=== PATIENT | male | born 1965 | race Caucasian/White ===

== ENCOUNTER 2017-09-08 11:24 | Observation (INO) | payer BC ==
[2017-09-08] MEDS ORDERED: ASPIRIN 81 MG PO STA (12:05)
--- NOTE | 2017-09-08 12:11 | ED ---
General Adult HPI - General Source: patient, RN notes reviewed Mode of arrival: ambulatory Limitations: no limitations <Marty Gupta - Last Filed: 09/08/17 13:54> <Gerson Patterson - Last Filed: 09/08/17 14:19> - General Chief complaint: Anxiety Stated complaint: Chills, Anxiety Time Seen by Provider: 09/08/17 11:54 - History of Present Illness Initial comments: This a 51-year-old male presents emergency Department with complaints of left sided chest pain. Patient states that symptoms started primarily last night in which he states he has some onset of chills, denies tingling and not feeling well. Patient states that today he has developed some pain which is very minimal 08/07. Patient states she's had no prior cardiac history does have regular labwork physical every 3 years no history of hyperlipidemia, diabetes or hypertension. Patient is a nonsmoker. Patient does not have heart disease history. Patient states that he has no shortness of breath he has had several episodes where he gets hot flush, clammy not feeling well but symptoms were last briefly. He states primary's had this since this morning. He does admit that he is generalized. Well but he has left sided upper abdominal pain states some days it hurts and some states it doesn't. States it does increase with certain activities. Patient had no prior abdominal or chest surgeries. Denies any URI symptoms. (Marty Gupta) - Related Data Home Medications Medication Instructions Recorded Confirmed Ascorbic Acid [Vitamin C] 1,000 mg PO DAILY 09/08/17 09/08/17 Aspirin 81 mg PO DAILY 09/08/17 09/08/17 Cholecalciferol [Vitamin D3] 1,000 unit PO DAILY 09/08/17 09/08/17 Echinacea 400 mg PO DAILY 09/08/17 09/08/17 Multivit-Min/FA/Lycopen/Lutein 1 cap PO DAILY 09/08/17 09/08/17 [Centrum Silver Men Tablet] Vitamin B Complex 1 cap PO DAILY 09/08/17 09/08/17 Allergies Allergy/AdvReac Type Severity Reaction Status Date / Time No Known Allergies Allergy Verified 09/08/17 13:45 Review of Systems ROS Other: All systems not noted in ROS Statement are negative. <Marty Gupta - Last Filed: 09/08/17 13:54> ROS Other: All systems not noted in ROS Statement are negative. <Gerson Patterson - Last Filed: 09/08/17 14:19> ROS Statement: Those systems with pertinent positive or pertinent negative responses have been documented in the HPI. Past Medical History Past Medical History: No Reported History History of Any Multi-Drug Resistant Organisms: None Reported Past Surgical History: No Surgical Hx Reported Past Psychological History: Anxiety Smoking Status: Never smoker Past Alcohol Use History: Occasional Past Drug Use History: None Reported <Marty Gupta - Last Filed: 09/08/17 13:54> General Exam Limitations: no limitations General appearance: alert, in no apparent distress Head exam: Present: atraumatic, normocephalic, normal inspection Eye exam: Present: normal appearance, PERRL, EOMI. Absent: scleral icterus, conjunctival injection, periorbital swelling ENT exam: Present: normal exam, normal oropharynx, mucous membranes moist, TM's normal bilaterally, normal external ear exam Neck exam: Present: normal inspection, full ROM. Absent: tenderness, meningismus, lymphadenopathy Respiratory exam: Present: normal lung sounds bilaterally. Absent: respiratory distress, wheezes, rales, rhonchi, stridor Cardiovascular Exam: Present: regular rate, normal rhythm, normal heart sounds. Absent: systolic murmur, diastolic murmur, rubs, gallop, clicks GI/Abdominal exam: Present: soft, normal bowel sounds. Absent: distended, tenderness, guarding, rebound, rigid Neurological exam: Present: alert, oriented X3, CN II-XII intact Skin exam: Present: warm, dry, intact, normal color. Absent: rash <Marty Gupta - Last Filed: 09/08/17 13:54> Course <Marty Gupta - Last Filed: 09/08/17 13:54> <Gerson Patterson - Last Filed: 09/08/17 14:19> Vital Signs 09/08/17 09/08/17 11:30 12:50 Temperature 97.7 F Pulse Rate 80 68 Respiratory 18 16 Rate Blood Pressure 133/65 134/66 O2 Sat by Pulse 99 98 Oximetry - Reevaluation(s) Reevaluation #1: 09/08/17 14:18 Patient was reevaluated by myself, Dr. Patterson. Patient symptom-free at this time. Patient has had episodes of chest discomfort since last night. Patient has had some associated mild nausea and diaphoresis. Patient and family updated on results and plan. Case was discussed in detail with Dr. Maharaj, who will admit for Dr. Bermudez. (Gerson Patterson) EKG Findings - EKG Comments: EKG Findings:: EKG performed at 11:37 normal sinus rhythm with a rate of 78 MS 138 QRS 92 QT/QTC 392/423 <Marty Gupta - Last Filed: 09/08/17 13:54> Medical Decision Making - Lab Data Result diagrams: 09/08/17 12:15 09/08/17 12:15 <Marty Gupta - Last Filed: 09/08/17 13:54> - Lab Data Result diagrams: 09/08/17 12:15 09/08/17 12:15 <Gerson Patterson - Last Filed: 09/08/17 14:19> - Lab Data Lab Results 09/08/17 09/08/17 09/08/17 Range/Units 12:15 12:15 12:15 WBC 8.4 (3.8-10.6) k/uL RBC 5.56 (4.30-5.90) m/uL Hgb 16.2 (13.0-17.5) gm/dL Hct 50.9 (39.0-53.0) % MCV 91.4 (80.0-100.0) fL MCH 29.1 (25.0-35.0) pg MCHC 31.8 (31.0-37.0) g/dL RDW 12.2 (11.5-15.5) % Plt Count 235 (150-450) k/uL Neutrophils % 84 % Lymphocytes % 8 % Monocytes % 7 % Eosinophils % 1 % Basophils % 0 % Neutrophils # 7.0 (1.3-7.7) k/uL Lymphocytes # 0.7 L (1.0-4.8) k/uL Monocytes # 0.6 (0-1.0) k/uL Eosinophils # 0.1 (0-0.7) k/uL Basophils # 0.0 (0-0.2) k/uL PT (9.0-12.0) sec INR (<1.2) APTT (22.0-30.0) sec Sodium 143 (137-145) mmol/L Potassium 4.2 (3.5-5.1) mmol/L Chloride 102 (98-107) mmol/L Carbon Dioxide 30 (22-30) mmol/L Anion Gap 11 mmol/L BUN 14 (9-20) mg/dL Creatinine 0.90 (0.66-1.25) mg/dL Est GFR (MDRD) Af Amer >60 (>60 ml/min/1.73 sqM) Est GFR (MDRD) Non-Af >60 (>60 ml/min/1.73 sqM) Glucose 103 H (74-99) mg/dL Calcium 10.7 H (8.4-10.2) mg/dL Magnesium 2.2 (1.6-2.3) mg/dL Total Bilirubin 0.6 (0.2-1.3) mg/dL AST 22 (17-59) U/L ALT 19 L (21-72) U/L Alkaline Phosphatase 48 (38-126) U/L Total Creatine Kinase 49 L (55-170) U/L CK-MB (CK-2) 0.4 (0.0-2.4) ng/mL CK-MB (CK-2) Rel Index 0.8 Troponin I <0.012 (0.000-0.034) ng/mL Total Protein 7.4 (6.3-8.2) g/dL Albumin 4.5 (3.5-5.0) g/dL Amylase 65 (30-110) U/L Lipase 74 (23-300) U/L 09/08/17 Range/Units 12:15 WBC (3.8-10.6) k/uL RBC (4.30-5.90) m/uL Hgb (13.0-17.5) gm/dL Hct (39.0-53.0) % MCV (80.0-100.0) fL MCH (25.0-35.0) pg MCHC (31.0-37.0) g/dL RDW (11.5-15.5) % Plt Count (150-450) k/uL Neutrophils % % Lymphocytes % % Monocytes % % Eosinophils % % Basophils % % Neutrophils # (1.3-7.7) k/uL Lymphocytes # (1.0-4.8) k/uL Monocytes # (0-1.0) k/uL Eosinophils # (0-0.7) k/uL Basophils # (0-0.2) k/uL PT 10.5 (9.0-12.0) sec INR 1.1 (<1.2) APTT 25.3 (22.0-30.0) sec Sodium (137-145) mmol/L Potassium (3.5-5.1) mmol/L Chloride (98-107) mmol/L Carbon Dioxide (22-30) mmol/L Anion Gap mmol/L BUN (9-20) mg/dL Creatinine (0.66-1.25) mg/dL Est GFR (MDRD) Af Amer (>60 ml/min/1.73 sqM) Est GFR (MDRD) Non-Af (>60 ml/min/1.73 sqM) Glucose (74-99) mg/dL Calcium (8.4-10.2) mg/dL Magnesium (1.6-2.3) mg/dL Total Bilirubin (0.2-1.3) mg/dL AST (17-59) U/L ALT (21-72) U/L Alkaline Phosphatase (38-126) U/L Total Creatine Kinase (55-170) U/L CK-MB (CK-2) (0.0-2.4) ng/mL CK-MB (CK-2) Rel Index Troponin I (0.000-0.034) ng/mL Total Protein (6.3-8.2) g/dL Albumin (3.5-5.0) g/dL Amylase (30-110) U/L Lipase (23-300) U/L Disposition <Marty Gupta - Last Filed: 09/08/17 13:54> <Gerson Patterson - Last Filed: 09/08/17 14:19> Clinical Impression: Chest pain Disposition: ADMITTED IP TO THIS [facility] Condition: Stable Referrals: Mary Ann Bermudez MD [Primary Care Provider] - 1-2 days
[2017-09-08 12:36] LABS: Basophils % (A) 0 %; Eosinophils # (A) 0.1 k/uL (0-0.7); Eosinophils % (A) 1 %; HCT 50.9 % (39.0-53.0); HGB 16.2 gm/dL (13.0-17.5); Lymphocytes # (A) 0.7 k/uL (1.0-4.8); Lymphocytes % (A) 8 %; MCH 29.1 pg (25.0-35.0); MCHC 31.8 g/dL (31.0-37.0); MCV 91.4 fL (80.0-100.0); Mean Platelet Volume 6.6; Monocytes # (A) 0.6 k/uL (0-1.0); Monocytes % (A) 7 %; Neutrophils % (A) 84 %; Platelet Count 235 k/uL (150-450); RBC 5.56 m/uL (4.30-5.90); RDW 12.2 % (11.5-15.5); WBC 8.4 k/uL (3.8-10.6)
[2017-09-08 12:44] LABS: INR 1.1 (<1.2); Partial Thromboplastin Time 25.3 sec (22.0-30.0); Prothrombin Time 10.5 sec (9.0-12.0)
[2017-09-08 12:49] LABS: ALT 19 U/L (21-72); AST 22 U/L (17-59); Albumin 4.5 g/dL (3.5-5.0); Alkaline Phosphatase 48 U/L (38-126); Amylase 65 U/L (30-110); Anion Gap 11 mmol/L; Blood Urea Nitrogen 14 mg/dL (9-20); Calcium 10.7 mg/dL (8.4-10.2); Carbon Dioxide 30 mmol/L (22-30); Chloride 102 mmol/L (98-107); Glucose 103 mg/dL (74-99); Lipase 74 U/L (23-300); Magnesium 2.2 mg/dL (1.6-2.3); Potassium 4.2 mmol/L (3.5-5.1); Sodium 143 mmol/L (137-145); Total Bilirubin 0.6 mg/dL (0.2-1.3); Total Protein 7.4 g/dL (6.3-8.2)
[2017-09-08 12:58] LABS: Creatine Kinase 49 U/L (55-170)
[2017-09-08 13:10] LABS: Creatine Kinase MB 0.4 ng/mL (0.0-2.4); Troponin I <0.012 ng/mL (0.000-0.034)
--- NOTE | 2017-09-08 13:18 | XR ---
EXAMINATION TYPE: XR chest 2V DATE OF EXAM: 09/08/2017 HISTORY: Chest Pain. REFERENCE: NONE. FINDINGS: The lungs are overinflated but clear. Pleural spaces are clear. The heart is not enlarged. IMPRESSION: COPD.
[2017-09-08] MEDS ORDERED: HEPARIN SODIUM,PORCINE 5,000 UNIT/ML 1 ML VIAL IV ONE (13:55)
[2017-09-08] MEDS ORDERED: NITROGLYCERIN SL TABS 0.4 MG TAB SUBLINGUAL PRN (13:55)
[2017-09-08] MEDS ORDERED: HEPARIN SOD,PORK IN 0.45% NACL 25,000 UNIT in 0.45% NACL 1 500ML.BAG IV SCH (14:00)
[2017-09-08 14:54] VITALS: BMI 19.1
[2017-09-08 19:56] LABS: Creatine Kinase 43 U/L (55-170)
[2017-09-08 20:09] LABS: Creatine Kinase MB 0.2 ng/mL (0.0-2.4); Troponin I <0.012 ng/mL (0.000-0.034)
[2017-09-08 20:33] VITALS: RESP 16
[2017-09-09 01:42] LABS: Creatine Kinase 39 U/L (55-170)
[2017-09-09 01:55] LABS: Creatine Kinase MB <0.2 ng/mL (0.0-2.4); Troponin I <0.012 ng/mL (0.000-0.034)
[2017-09-09 03:51] LABS: Cholesterol 181 mg/dL (<200); HDL Cholesterol 59 mg/dL (40-60); LDL Cholesterol,Calculated 108 mg/dL (0-99); Triglycerides 68 mg/dL (<150)
[2017-09-09] MEDS ORDERED: ASPIRIN 325 MG TAB PO SCH ×2 (09:00)
--- NOTE | 2017-09-09 10:17 | ECHOF ---
Referral Reason:chest pain MEASUREMENTS -------- HEIGHT: 185.4 cm WEIGHT: 65.3 kg BP: 112/65 RVIDd: 2.7 cm (< 3.3) IVSd: 1.1 cm (0.6 - 1.1) LVIDd: 4.4 cm (3.9 - 5.3) LVPWd: 1.0 cm (0.6 - 1.1) IVSs: 1.4 cm LVIDs: 3.0 cm LVPWs: 1.5 cm LA Diam: 3.1 cm (2.7 - 3.8) Ao Diam: 3.6 cm (2.0 - 3.7) AV Cusp: 2.3 cm (1.5 - 2.6) MV EXCURSION: 26.226 mm (> 18.000) MV EF SLOPE: 224 mm/s (70 - 150) EPSS: 0.1 cm MV E Juan M: 0.76 m/s MV DecT: 165 ms MV A Juan M: 0.40 m/s MV E/A Ratio: 1.90 RAP: 5.00 mmHg RVSP: 21.00 mmHg FINDINGS -------- Sinus rhythm. This was a technically good study. The left ventricular size is normal. There is borderline concentric left ventricular hypertrophy. Overall left ventricular systolic function is normal with, an EF between 55 - 60 %. The right ventricle is normal in size. The left atrial size is normal. The right atrium is normal in size. The aortic valve is trileaflet, and appears structurally normal. No aortic stenosis or regurgitation. The mitral valve is normal. Mild mitral regurgitation is present. Mild tricuspid regurgitation present. Right ventricular systolic pressure is normal at < 35 mmHg. There is no pulmonic regurgitation present. The aortic root size is normal. Normal inferior vena cava with normal inspiratory collapse consistent with estimated right atrial pre ssure of 5 mmHg. There is no pericardial effusion. CONCLUSIONS -------- 1. Sinus rhythm. 2. This was a technically good study. 3. The left ventricular size is normal. 4. There is borderline concentric left ventricular hypertrophy. 5. Overall left ventricular systolic function is normal with, an EF between 55 - 60 %. 6. The left atrial size is normal. 7. The aortic valve is trileaflet, and appears structurally normal. No aortic stenosis or regurgitati on. 8. The mitral valve is normal. 9. Mild mitral regurgitation is present. 10. Mild tricuspid regurgitation present. 11. Right ventricular systolic pressure is normal at < 35 mmHg. 12. There is no pulmonic regurgitation present. 13. The aortic root size is normal. 14. Normal inferior vena cava with normal inspiratory collapse consistent with estimated right atrial pressure of 5 mmHg. 15. There is no pericardial effusion. WATER CARTER: Madison Morrison RDCS
--- NOTE | 2017-09-09 11:18 | P.CRDCN ---
History of Present Illness Consult date: 09/09/17 Consult reason: chest pain History of present illness: Mr. Cline is a pleasant 51-year-old male with no significant past medical history. He does admit to mild anxiety and smokes cigars intermittently. He denies history of coronary artery disease in himself or any members of his immediate family. He does recall having had a stress test a few years ago in [facility] for a similar episode. We have been asked to see him in consultation for complaints of chest pain. Yesterday he had an acute onset of mid-sternal chest tightening while sitting in bed watching TV. He denies radiation of the pain to the arms, back, neck or jaw. He did have mild shortness of breath, clammy hands and nausea during this episode. This persisted for approximately 2-3 hours with no specific aggravating or alleviating factors. He has had no further episodes since admission and telemetry tracings have been unremarkable. EKG reveals sinus mechanism with no acute ST or T-wave abnormalities. Chest xray shows hyperinflation consistent with COPD. Laboratory data reviewed, hgb 16.2, plt 235, d-dimer negative, potasium 4.2, magnesium 2.2, creatinine 0.9, cardiac enzymes negative x3, LDL 108, HDL 59. Currently he takes aspirin 81 mg daily. Stress test from [place] was obtained and reviewed, he underwent a cardiolyte that was negative for stress induced reversible ischemia with EF 66%. Review of Systems At the time of my exam: CONSTITUTIONAL: Denies fever. Denies chills. EYES: Denies blurred vision. Denies vision changes. Denies eye pain. EARS, NOSE, MOUTH & THROAT: Denies headache. Denies sore throat. Denies ear pain. CARDIOVASCULAR: Denies chest pain. Denies shortness of breath. Denies orthopnea. Denies PND. Denies palpitations. RESPIRATORY: Denies cough. GASTROINTESTINAL: Denies abdominal pain. Denies diarrhea. Denies constipation. Denies nausea. Denies vomiting. MUSCULOSKELETAL: Denies myalgias. INTEGUMENTARY: Denies pruitis. Denies rash. NEUROLOGIC: Denies numbness. Denies tingling. Denies weakness. PSYCHIATRIC: Denies anxiety. Denies depression. ENDOCRINE: Denies fatigue. Denies weight change. Denies polydipsia. Denies polyurina. GENITOURINARY: Denies burning, hematuria or urgency with micturation. HEMATOLOGIC: Denies history of anemia. Denies bleeding. Past Medical History Past Medical History: No Reported History History of Any Multi-Drug Resistant Organisms: None Reported Past Surgical History: No Surgical Hx Reported Smoking Status: Never smoker Medications and Allergies Home Medications Medication Instructions Recorded Confirmed Type Ascorbic Acid [Vitamin C] 1,000 mg PO DAILY 09/08/17 09/08/17 History Aspirin 81 mg PO DAILY 09/08/17 09/08/17 History Cholecalciferol [Vitamin D3] 1,000 unit PO DAILY 09/08/17 09/08/17 History Echinacea 400 mg PO DAILY 09/08/17 09/08/17 History Multivit-Min/FA/Lycopen/Lutein 1 cap PO DAILY 09/08/17 09/08/17 History [Centrum Silver Men Tablet] Vitamin B Complex 1 cap PO DAILY 09/08/17 09/08/17 History Allergies Allergy/AdvReac Type Severity Reaction Status Date / Time No Known Allergies Allergy Verified 09/08/17 13:45 Physical Exam Vitals: Vital Signs Temp Pulse Pulse Resp BP BP Pulse Ox 09/09/17 07:17 98.5 F 65 16 112/65 96 09/09/17 04:00 98.4 F 64 16 121/68 97 09/09/17 00:00 98.9 F 69 16 115/65 96 09/08/17 20:00 98.4 F 57 L 16 111/68 96 09/08/17 19:57 56 L 18 09/08/17 15:32 97 09/08/17 14:45 98.5 F 59 L 18 120/77 93 L 09/08/17 14:40 60 16 110/63 94 L 09/08/17 12:50 68 16 134/66 98 09/08/17 11:30 97.7 F 80 18 133/65 99 Intake and Output 09/08/17 09/09/17 09/09/17 22:59 06:59 14:59 Intake Total 92.05 116.947 Balance 92.05 116.947 Intake: Intake, IV Titration 92.05 116.947 Amount Heparin Sod,Pork in 0.45% 92.05 116.947 NaCl 25,000 unit In 0.45 % NaCl 1 500ml.bag @ 12 UNITS/KG/HR 15.78 mls/hr IV .Q24H [facility] Rx#: [id number] Other: Voiding Method Toilet Toilet # Voids 2 3 Weight 65.77 kg Blood pressure 112/65 heart rate 65 afebrile GENERAL: This is a 51-year-old male in no apparent distress at the time of my examination. HEENT: Head is atraumatic, normocephalic. Pupils are equal, round. Sclerae anicteric. Conjunctivae are clear. Mucous membranes of the mouth are moist. Neck is supple. There is no jugular venous distention. No carotid bruit is heard. LUNGS: Clear to auscultation no wheezes, rales or rhonchi. No chest wall tenderness is noted on palpation or with deep breathing. HEART: Regular rate and rhythm without murmurs, rubs or gallops. S1 and S2 heard. ABDOMEN: Soft, nontender. Bowel sounds are heard. No organomegaly noted. EXTREMITIES: No evidence of peripheral edema and no calf tenderness noted. VASCULAR: Radial and dorsalis pedis pulses palpated, no evidence of clubbing. NEUROLOGIC: Patient is awake, alert and oriented x3. Results 09/08/17 12:15 09/08/17 12:15 Cardiac Enzymes 09/08/17 09/08/17 09/08/17 Range/Units 12:15 12:15 19:17 AST 22 (17-59) U/L CK-MB (CK-2) 0.4 0.2 (0.0-2.4) ng/mL Troponin I <0.012 <0.012 (0.000-0.034) ng/mL 09/09/17 Range/Units 01:12 AST (17-59) U/L CK-MB (CK-2) <0.2 (0.0-2.4) ng/mL Troponin I <0.012 (0.000-0.034) ng/mL Coagulation 09/08/17 09/08/17 09/09/17 Range/Units 12:15 19:17 01:12 PT 10.5 (9.0-12.0) sec APTT 25.3 31.6 H 42.5 H (22.0-30.0) sec Lipids 09/08/17 Range/Units 12:15 Triglycerides 68 (<150) mg/dL Cholesterol 181 (<200) mg/dL HDL Cholesterol 59 (40-60) mg/dL CBC 09/08/17 Range/Units 12:15 WBC 8.4 (3.8-10.6) k/uL RBC 5.56 (4.30-5.90) m/uL Hgb 16.2 (13.0-17.5) gm/dL Hct 50.9 (39.0-53.0) % Plt Count 235 (150-450) k/uL Comprehensive Metabolic Panel 09/08/17 Range/Units 12:15 Sodium 143 (137-145) mmol/L Potassium 4.2 (3.5-5.1) mmol/L Chloride 102 (98-107) mmol/L Carbon Dioxide 30 (22-30) mmol/L BUN 14 (9-20) mg/dL Creatinine 0.90 (0.66-1.25) mg/dL Glucose 103 H (74-99) mg/dL Calcium 10.7 H (8.4-10.2) mg/dL AST 22 (17-59) U/L ALT 19 L (21-72) U/L Alkaline Phosphatase 48 (38-126) U/L Total Protein 7.4 (6.3-8.2) g/dL Albumin 4.5 (3.5-5.0) g/dL Current Medications Generic Name Dose Route Start Last Admin Trade Name Freq PRN Reason Stop Dose Admin Aspirin 81 mg 09/09/17 09:00 Aspirin PO DAILY PILY Heparin Sodium/Sodium Chloride 500 mls @ 15.78 mls/hr 09/08/17 14:00 02:00 25,000 unit/ Sodium Chloride IV 16.87 units/kg/hr .Q24H PILY 22.2 mls/hr Protocol Titration 12 UNITS/KG/HR Nitroglycerin 0.4 mg 09/08/17 13:55 Nitrostat SUBLINGUAL Q5M PRN Chest Pain Intake and Output 09/08/17 09/09/17 09/09/17 22:59 06:59 14:59 Intake Total 92.05 116.947 Balance 92.05 116.947 Intake: Intake, IV Titration 92.05 116.947 Amount Heparin Sod,Pork in 0.45% 92.05 116.947 NaCl 25,000 unit In 0.45 % NaCl 1 500ml.bag @ 12 UNITS/KG/HR 15.78 mls/hr IV .Q24H [facility] Rx#: [id number] Other: Voiding Method Toilet Toilet # Voids 2 3 Weight 65.77 kg 09/08/17 12:15 09/08/17 12:15 Assessment and Plan Assessment: ASSESSMENT 1. Chest pain, atypical. Acute coronary event has been ruled out with negative cardiac enzymes and no EKG changes indicative of ischemia. PLAN Obtain 2D echocardiogram and doppler study to assess cardiac structure and function Perform stress echocardiogram to evaluate for stress induced ischemia. Further recommendations to follow based upon diagnostic findings. If stress test is negative he is stable from a cardiac perspective. Thank you kindly for this consultation. Nurse Practitioner note has been reviewed, I agree with a documented findings and plan of care. Patient was seen and examined.
[2017-09-09 11:44] VITALS: BP 122/80; PULSE 88; TEMP 97.9
--- NOTE | 2017-09-09 12:09 | ECHOS ---
STRESS ECHOCARDIOGRAM INDICATIONS: Chest pain. MEDICATIONS: Aspirin. BASELINE HEART RATE: 80 BASELINE BLOOD PRESSURE: 124/70 MAXIMUM HEART RATE: 161 MAXIMUM BLOOD PRESSURE: 179/67 85% MPHR: 145 100% MPHR: 171 METS: 10.7 MAXIMUM STAGE REACHED: 4 TOTAL EXERCISE TIME: 10:00 CLINICAL INFORMATION: Baseline rhythm is sinus mechanism, rate of 80, normal axis, intervals, normal electrocardiogram. Baseline blood pressure 124/70 mmHg. Patient exercised on Fernando protocol for 10 minutes reaching peak at 161 beats per minute, which is equal to 94%. Peak blood pressure 179/67 mmHg. Test was terminated due to fatigue. There were no chest pains. Electrocardiograph monitoring revealed no evidence of diagnostic ischemic ST deviation. FINDING: Baseline echocardiogram revealed normal LV function. At peak exercise, there was normal wall motion and augmentation with no hypokinesis or dyskinesis. CONCLUSION: 1. Good exercise tolerance with normal electrocardiograph post exercise. 2. Normal stress echocardiogram with no evidence of stress-induced ischemia. MMODL / IJN: [id number] /
[2017-09-09] MEDS ORDERED: ASPIRIN 81 MG PO SCH (15:00)
--- NOTE | 2017-09-10 05:29 | HP ---
HISTORY AND PHYSICAL DATE OF SERVICE: 09/08/2017 CHIEF COMPLAINT: Chest pain. HISTORY OF PRESENT ILLNESS: This 51-year-old gentleman with a past medical history of multiple medical problems including history of anxiety, history of panic episodes infrequently, being followed by Dr. Bermudez in the outpatient setting, was complaining of chest pain. The patient had left-sided chest pain subsequently constantly feeling in the anterior part of the chest and because of recurrence of symptoms patient came to [facility] and admitted for further evaluation and treatment. There is no history of fever, rigors. No headache, loss of consciousness or seizures. Patient also complains of left-sided abdominal pain. PAST MEDICAL HISTORY: History of anxiety, history of panic attacks. MEDICATIONS: Medications prior to admission include medications: 1. Multivitamins. 2. Echinacea. 3. Vitamin C. 4. Vitamin D3. ALLERGIES: None. FAMILY HISTORY: History of heart disease in the family. SOCIAL HISTORY: No history of smoking. No history of alcohol intake. REVIEW OF SYSTEMS: ENT: No diminished hearing or diminished vision. CARDIOVASCULAR SYSTEM: As mentioned earlier. RESPIRATORY SYSTEM: As mentioned earlier. GI: No nausea, no vomiting or diarrhea. : No dysuria. NERVOUS SYSTEM: No numbness or weakness. ALLERGY/IMMUNOLOGY: No asthma or hayfever. MUSCULOSKELETAL: As mentioned earlier. HEMATOLOGY/ONCOLOGY: No history of anemia. ENDOCRINE: No history of diabetes or hypothyroidism. CONSTITUTIONAL; As mentioned earlier. DERMATOLOGY: Negative. RHEUMATOLOGY: Negative. PSYCHIATRY: As mentioned earlier. PHYSICAL EXAMINATION: The patient is alert and oriented x3. Pulse is 88, blood pressure 122/80, respirations 16, temperature 97.9, pulse ox 97% room air. HEENT: Conjunctivae normal. NECK: No jugular venous distention. CARDIOVASCULAR: S1 and S2 muffled. RESPIRATORY: Breath sounds diminished at the bases. No rhonchi. No crackles. ABDOMEN: Soft, nontender. No mass palpable. LEGS: No edema, no swelling. NERVOUS SYSTEM: Higher functions as mentioned earlier. Moves all 4 limbs. LYMPHATICS: No lymphadenopathy of the neck, axillae or groin. SKIN: No ulcer, rash or bleeding. LABS: CBC within normal limits. Glucose an 103. Calcium is 10.7. ASSESSMENT: 1. Chest pain, possible unstable angina, possible musculoskeletal pain. 2. History of panic attacks. 3. History of anxiety. RECOMMENDATIONS AND DISCUSSION: This 51-year-old gentleman who presented with multiple complex medical issues, will monitor the patient closely. Continue the current medications. Continue symptomatic treatment. I would recommend unstable angina protocol otherwise cardiology consultation possible stress test. Guarded prognosis because of multiple complex medical issues. Further recommendations to follow. A copy of dictation forwarded to Dr. Bermudez, who is the primary physician. WILLARD / ЕЛЕНА: [id number] /
--- NOTE | 2017-09-10 08:10 | DS ---
DISCHARGE SUMMARY DATE OF SERVICE: 09/09/2017. FINAL DIAGNOSES: 1. Chest pain possibly musculoskeletal with negative stress echo. 2. History of panic attacks. 3. History of anxiety. 4. 5. Increased LDL. DISCHARGE DISPOSITION: The patient will be discharged in stable condition with guarded prognosis. HISTORY OF PRESENT ILLNESS: This 51-year-old gentleman admitted with chest pain, had been closely monitored. Myocardial infarction ruled out. Cardiology performed a stress echo, which was normal. Patient will be discharged in stable condition with guarded prognosis. Cardiology cleared the patient for discharge. Of note, the LDL was 108. On exam, vitals are stable. CARDIOVASCULAR: S1 and S2 muffled. ABDOMEN: Soft. NERVOUS SYSTEM: No focal deficits. DISCHARGE ADVICE: 1. Diet is cardiac. 2. Activity limited until followup. 3. Follow up with Dr. Bermudez in 2 weeks. 4. Follow up with Cardiology as recommended. Medications will be: 1. Vitamin C 1000 mg daily. 2. Aspirin 81 mg daily. 3. Vitamin D3, 1000 daily. 4. Echinacea 400 daily. 5. Multivitamins 1 p.o. daily. 6. Vitamin B complex 1 p.o. daily. Once again, the patient will be discharged in a stable condition with guarded prognosis. MMODL / IJN: [id number] /
== END 2017-09-09 15:25 | disposition home or self-care (01) ==
LOC: EC 11:24 → 3SUR 13:55 → 3OBS 18:55
PROVIDERS: ADMIT Hospitalist; ATTEND Hospitalist
DX: R07.89 Other chest pain (principal); R10.9 Unspecified abdominal pain; F41.0 Panic disorder [episodic paroxysmal anxiety]; F41.9 Anxiety disorder, unspecified; R11.0 Nausea; R61 Generalized hyperhidrosis; Z79.82 Long term (current) use of aspirin; F17.290 Nicotine dependence, other tobacco product, uncomplicated; Z82.49 Family history of ischemic heart disease and other diseases of the circulatory system
CPT/HCPCS: 99284 ×2; 96365 ×2; 96366 ×2; 36415; 93005; 93017; 93306; 93350; 85379; 80061; 80053; 82150; 82550 ×2; 82553 ×2; 83690; 83735; 84484 ×2; 85025; 85610; 85730 ×2; 71046; G0378 ×2; J1644

== ENCOUNTER → 2017-10-08 | Outpatient (CLI) | payer BC ==
--- NOTE | 2017-10-08 13:48 | US ---
EXAMINATION TYPE: US abdomen complete DATE OF EXAM: 10/08/2017 COMPARISON: NONE CLINICAL HISTORY: R10.11 Right upper quad pain. Intermittent left flank pain x couple months EXAM MEASUREMENTS: Liver Length: 16.8 cm Gallbladder Wall: 0.2 cm CBD: 0.4 cm Spleen: 10.0 cm Right Kidney: 10.9 x 4.4 x 5.0 cm Left Kidney: 9.6 x 4.3 x 4.5 cm Pancreas: wnl Liver: wnl Gallbladder: wnl Evidence for sonographic Lange's sign: no CBD: wnl Spleen: visualized portions wnl, limited by rib shadowing and overlying bowel gas Right Kidney: wnl Left Kidney: visualized portions wnl, limited by rib shadowing Upper IVC: wnl Abd Aorta: wnl IMPRESSION: 1. Normal abdomen ultrasound
== END | disposition home or self-care (01) ==
LOC: RADUSWWP 08:30
PROVIDERS: ATTEND Internal Medicine
DX: R10.11 Right upper quadrant pain (principal)
CPT/HCPCS: 76700

== ENCOUNTER → 2024-01-06 | Outpatient (CLI) | payer BC ==
--- NOTE | 2024-01-06 14:18 | CT ---
EXAMINATION TYPE: CT abdomen pelvis w con CT DLP: 402.5 mGycm, Automated exposure control for dose reduction was used. DATE OF EXAM: 01/06/2024 2:13 PM COMPARISON: 10/09/2019 CLINICAL INDICATION:Male, 58 years old with history of R10.813 RIGHT LOWER QUADRANT ABDOMINAL TENDERN ESS; RLQ pain TECHNIQUE: Axial CT abdomen pelvis w con;Sagittal and coronal reformats were created on a separate w orkstation. Contrast used:100 mL of Isovue 300 with IV Contrast, (none if empty) Oral contrast used: with Oral Contrast (none if empty) FINDINGS: LOWER CHEST: Unremarkable ABDOMEN LIVER: Unremarkable GALLBLADDER AND BILE DUCTS: Unremarkable. PANCREAS: Unremarkable. SPLEEN: Unremarkable. ADRENAL GLANDS: Unremarkable. KIDNEYS AND URETERS: No evidence of hydronephrosis or renal calculus. The ureters are unremarkable. PELVIS BLADDER: Unremarkable REPRODUCTIVE: Unremarkable. ABDOMEN & PELVIS STOMACH AND BOWEL: No evidence of bowel obstruction. Significant fat stranding changes seen in the ri ght lower quadrant in the expected location of the appendix. Appendix lumen is not definitively visua lized. No organizing fluid collections. Findings suggest ruptured appendix. PERITONEUM/RETROPERITONEUM: No evidence of pneumoperitoneum or free fluid. VASCULATURE: No evidence of aortic aneurysm. MUSCULOSKELETAL: No acute osseous abnormalities LYMPH NODES: No gross evidence for lymphadenopathy. SOFT TISSUE/ABDOMINAL WALL: Unremarkable IMPRESSION: Findings concerning fore acute appendicitis. The appendix lumen is not definitively visualized sugges ting the appendix may have ruptured. Surgical consultation recommended. No evidence for organizing fl uid collection at this time.
== END | disposition home or self-care (01) ==
LOC: RADCTMAIN 11:57
PROVIDERS: ATTEND Family Medicine
DX: R10.813 Right lower quadrant abdominal tenderness (principal); R10.823 Right lower quadrant rebound abdominal tenderness; R10.31 Right lower quadrant pain
CPT/HCPCS: 74177; Q9967

== ENCOUNTER → 2024-01-14 | Outpatient (CLI) | payer BC ==
--- NOTE | 2024-01-18 22:49 | CT ---
EXAMINATION TYPE: CT chest w con DATE OF EXAM: 01/14/2024 COMPARISON: 01/06/2024 CT abdomen and pelvis HISTORY: pulmonary nodule CT DLP: 164.4 mGycm, Automated exposure control for dose reduction was used. CONTRAST: Performed injected with 100 mL of Isovue 300. TECHNIQUE: Axial images were obtained at 5 mm thick sections. Reconstructed images are reviewed on [employer] computer in the coronal plane. FINDINGS: Portion of the thyroid visualized is normal. There is a 0.5 cm peripheral nodule left base, series 4 image 55, present previously. Short-term foll ow-up is recommended in [address] chest[address] Recommendation per Fleischner criteria. Remainder th e chest appears clear. No enlarged mediastinal or hilar adenopathy is evident. The ascending aorta diameter at the level o f the main pulmonary artery is 3.7 cm. The main pulmonary artery diameter at the bifurcation is 2.[address] sections are obtained through the upper abdomen. A small amount of free air is noted withi n the abdomen compatible with the patient's recent appendectomy. IMPRESSION: 1. 0.5 cm left basilar nodule. Follow-up CT chest in one year recommended to confirm stability. 2. Pneumoperitoneum compatible with the patient's surgical history.
== END | disposition home or self-care (01) ==
LOC: RADCTMAIN 17:08
PROVIDERS: ATTEND Family Medicine
DX: R91.1 Solitary pulmonary nodule (principal)
CPT/HCPCS: 71260; Q9967

== ENCOUNTER → 2025-02-01 | Outpatient (CLI) | payer BC ==
--- NOTE | 2025-02-01 18:31 | CT ---
EXAMINATION TYPE: CT chest w con DATE OF EXAM: 02/01/2025 5:07 PM COMPARISON: 01/14/2024 CLINICAL INDICATION: Male, 59 years old with history of R93.89 ABNORMAL FINDINGS ON DX IMAGING OF OTH BODY; PHH, Abnormal finding on lung TECHNIQUE: Multiple axial images were obtained through the chest. Sagittal and coronal reformats were created for review. MIP was performed on a separate workstation. Contrast used: mL of (None if empty) Oral contrast used: (None if empty) CT DLP: 194.2 mGycm, Automated exposure control for dose reduction was used. FINDINGS: LUNGS/ PLEURA: Calcific granulomas in the left lung base is unchanged from prior on 01/14/2024. No foc al consolidation, pneumothorax or pleural effusion. AIRWAY: Patent and unremarkable. HEART: Size within normal limits. No significant coronary artery calcifications. MEDIASTINUM: No gross evidence of adenopathy. VASCULATURE: No aortic aneurysm. MUSCULOSKELETAL: No acute osseous abnormalities SOFT TISSUES/LYMPH NODES: Unremarkable. LOWER NECK: No significant findings. UPPER ABDOMEN: No significant findings. IMPRESSION: Left basilar nodule is calcified. This is most compatible with calcific granuloma. No follow-up recom mended for this particular nodule. [facility], , 02/01/2025 6:29 PM
== END | disposition home or self-care (01) ==
LOC: RADCTMAIN 16:43
PROVIDERS: ATTEND Family Medicine
DX: R93.89 Abnormal findings on diagnostic imaging of other specified body structures (principal); R91.8 Other nonspecific abnormal finding of lung field
CPT/HCPCS: 71260